=== PATIENT | male | born 1980 | race African-American/Black ===

== ENCOUNTER 2017-04-24 15:12 | Emergency (ER) | payer MEDICAID, MEDICARE ==
[~2017-04-24] VITALS: Ht 175.3 cm; Wt 74.8 kg
[~2017-04-24 15:12] MED LIST: PHE100C PO
[2017-04-24 15:30] VITALS: BP 130/79
== END 2017-04-24 19:25 | disposition left against medical advice (07) ==
LOC: ER 15:15
DX: H57.11 Ocular pain, right eye (principal); Z53.21 Procedure and treatment not carried out due to patient leaving prior to being seen by health care provider